=== PATIENT | female | born 1990 | race Caucasian/White ===

== ENCOUNTER 2023-06-27 19:28 | Emergency (ER) | payer SELFPAY ==
[~2023-06-27] VITALS: Ht 154.9 cm; Wt 76.2 kg
[2023-06-27 19:31] VITALS: BP 119/87; PULSE 87; RESP 16; TEMP 97.8; O2SAT 100
[2023-06-27] MEDS ORDERED: AZITHROMYCIN 1,000 MG in DEXTROSE 5% 500 ML IV ONE (20:05)
[2023-06-27 20:14] LABS: APPEARANCE,URINE CLEAR (CLEAR); BILIRUBIN,URINE NEGATIVE (NEGATIVE); BLOOD, URINE TRACE-I (NEGATIVE); COLOR,URINE YELLOW (YELLOW); LEUKOCYTE ESTERASE ,URINE NEGATIVE (NEGATIVE); NITRITE, URINE NEGATIVE (NEGATIVE); PROTEIN,URINE NEGATIVE (NEGATIVE); UGLUCOSE NEGATIVE (NEGATIVE); UROBILINOGEN,URINE 0.2 EU/dL (0.2 - 1)
[2023-06-27] MEDS: KETOROLAC 30 MG/ML VIAL IM ONE (20:46)
[2023-06-27] MEDS: ACETAMINOPHEN EXTRA STRENGTH 500 MG TAB PO ONE (20:47)
[2023-06-27] MEDS: predniSONE 20 MG TAB PO ONE (20:48)
[2023-06-27] MEDS: LIDOCAINE 5% 1 EA PATCH TP ONE (20:48)
[2023-06-27] MEDS ORDERED: PRED20TA5 PO (21:38)
[2023-06-27] MEDS ORDERED: LID5T TP (21:38)
[2023-06-27] MEDS ORDERED: CYCL-711 PO (21:38)
[2023-06-27] MEDS ORDERED: IBUP-2213 PO (21:38)
[2023-06-27] MEDS ORDERED: ACET-10509 PO (21:38)
[2023-06-27 22:05] VITALS: O2SAT 98
== END 2023-06-27 22:08 | disposition home or self-care (01) ==
LOC: MED 19:28
DX: S39.012A Strain of muscle, fascia and tendon of lower back, initial encounter (principal); Z79.899 Other long term (current) drug therapy; Z79.1 Long term (current) use of non-steroidal anti-inflammatories (NSAID); X50.0XXA Overexertion from strenuous movement or load, initial encounter; Y92.89 Other specified places as the place of occurrence of the external cause; Y93.89 Activity, other specified; Y99.8 Other external cause status
CPT/HCPCS: 81003; 81025; 96372; 99284; J1885; J7512

== ENCOUNTER 2024-02-05 11:07 | Emergency (ER) | payer OTHER ==
[~2024-02-05] VITALS: Ht 157.5 cm; Wt 77.1 kg
[~2024-02-05 11:07] MED LIST: ACET500T99 PO; CYCL-711 PO; IBUP-2213 PO; LID5T TP; PRED20TA5 PO
[2024-02-05 11:28] VITALS: BP 111/75; PULSE 88; RESP 18; TEMP 97.7; O2SAT 98
[2024-02-05 12:42] LABS: FLU A ANTIGEN negative (NEGATIVE); FLU B ANTIGEN NEGATIVE (NEGATIVE)
[2024-02-05] MEDS ORDERED: BENZ-300 PO (12:46)
[2024-02-05] MEDS ORDERED: SUD30 PO (12:46)
[2024-02-05] MEDS ORDERED: PROM118S5 PO (12:46)
[2024-02-05 13:17] VITALS: BP 111/75; PULSE 88; RESP 18; TEMP 97.7; O2SAT 98
== END 2024-02-05 13:08 | disposition home or self-care (01) ==
LOC: MED 11:07
DX: J06.9 Acute upper respiratory infection, unspecified (principal); Z20.822 Contact with and (suspected) exposure to COVID-19; Z79.899 Other long term (current) drug therapy
CPT/HCPCS: 87081; 99283